=== PATIENT | female | born 1975 | race Two or more races ===

== ENCOUNTER 2016-08-12 21:16 | Inpatient (IN) | payer OTHER ==
[2016-08-12 21:31] VITALS: BMI 26.6
--- NOTE | 2016-08-12 21:57 | ED PDOC ---
Arrival/HPI - General Chief Complaint: Fever Time Seen by Provider: 08/12/16 21:34 Historian: Patient - History of Present Illness Narrative History of Present Illness (Text): 08/12/16 21:57 King No is a 41 year old female who presents to the ED accompanied by relative complaining of left flank pain. Patient states, via relative acting end worker, she has been experiencing left-sided flank pain with associated fever, dysuria, nausea, and vomiting. Patient denies any chest pain, shortness of breath, diarrhea, neck pain, headache, dizziness, or any other complaints. Time/Duration: Other (yesterday) Symptom Onset: Gradual Symptom Course: Unchanged Activities at Onset: Rest, Light Context: Home Past Medical History - Provider Review Nursing Documentation Reviewed: Yes - Infectious Disease Hx of Infectious Diseases: None - Psychiatric Hx Psychophysiologic Disorder: No Hx Anxiety: No Hx Bipolar Disorder: No Hx Depression: No Hx Emotional Abuse: No Hx Hallucinations: No Hx Panic Disorder: No Hx Post Traumatic Stress Disorder: No Hx Psychosis: No Hx Physical Abuse: No Hx Schizophrenia: No Hx Sexual Abuse: No Hx Substance Use: No - Surgical History Hx Section: Yes (x1) - Anesthesia Hx Anesthesia: No Hx Anesthesia Reactions: No Hx Malignant Hyperthermia: No - Suicidal Assessment Feels Threatened In Home Enviroment: No Family/Social History - Physician Review Nursing Documentation Reviewed: Yes Family/Social History: No Known Family HX Smoking Status: Never Smoked Hx Alcohol Use: No Hx Substance Use: No Allergies/Home Meds Allergies/Adverse Reactions: Allergies No Known Allergies Allergy (Verified 12/23/14 14:37) Home Medications: Home Meds Medication Instructions Recorded Confirmed No Known Home Med 08/12/16 08/12/16 Review of Systems - Physician Review All systems were reviewed & negative as marked: Yes - Review of Systems Constitutional: Fevers Eyes: Normal ENT: Normal Respiratory: Normal. absent: SOB, Cough Cardiovascular: Normal. absent: Chest Pain Gastrointestinal: Nausea, Vomiting. absent: Diarrhea Genitourinary Female: Dysuria. absent: Hematuria, Urine Output Changes Musculoskeletal: Back Pain (+left-sided flank pain) Skin: Normal. absent: Rash Neurological: Normal. absent: Headache, Dizziness Endocrine: Normal Hemo/Lymphatic: Normal Psychiatric: Normal Physical Exam Vital Signs Reviewed: Yes Vital Signs Temp Pulse Resp BP Pulse Ox 08/13/16 00:52 101.1 F H 107 H 18 120/62 99 08/13/16 00:17 112 H 17 119/57 L 99 08/12/16 21:30 102.7 F H 122 H 20 116/68 100 Temperature: Febrile Blood Pressure: Normal Pulse: Regular Respiratory Rate: Normal Appearance: Positive for: Well-Appearing, Non-Toxic, Comfortable Pain Distress: None Mental Status: Positive for: Alert and Oriented X 3 - Systems Exam Head: Present: Atraumatic, Normocephalic Pupils: Present: PERRL Extroacular Muscles: Present: EOMI Conjunctiva: Present: Normal Mouth: Present: Moist Mucous Membranes Neck: Present: Normal Range of Motion Respiratory/Chest: Present: Clear to Auscultation, Good Air Exchange. No: Respiratory Distress, Accessory Muscle Use Cardiovascular: Present: Regular Rate and Rhythm, Normal S1, S2. No: Murmurs Abdomen: Present: Normal Bowel Sounds. No: Tenderness, Distention, Peritoneal Signs Back: Present: CVA Tenderness (Left CVA tenderness) Upper Extremity: Present: Normal Inspection. No: Cyanosis, Edema Lower Extremity: Present: Normal Inspection. No: Edema Neurological: Present: GCS=15, CN II-XII Intact, Speech Normal Skin: Present: Warm, Dry, Normal Color. No: Rashes Psychiatric: Present: Alert, Oriented x 3, Normal Insight, Normal Concentration Medical Decision Making ED Course and Treatment: 08/12/16 21:57 Impression: 41 year old female complaining of fever, left flank pain, dysuria, nausea, and vomiting since yesterday. Differential Diagnosis include but are not limited to: pyelonephritis vs. renal colic vs. kidney stone Plan: -- CT Abdomen and Pelvis w/o contrast -- Labs, lipase -- UA, urine cultures -- Reassess and disposition Progress Notes: Reviewed radiology, CT Abdomen and Pelvis shows: 1. LEFT hydroureteronephrosis without CT evidence of obstructing calculus. DDX: obstructing radiolucent stone, recently passed ureteral calculus, ureteral stricture, infection, obstructing ureteral mass. Clinical correlation and follow up are recommended. 2. Adnexal lesion, indeterminate. Recommend ultrasound. 3. Incidental/non-acute findings are described above. 08/12/16 23:43 Case discussed with medical communication specialist transit operations supervisor, who is aware and agrees with plan. House physician notified. 08/12/16 23:[address] Petty, who is aware and agrees with plan. Accepts pt in hospitalist service. Pt will go to [facility] observation for pyelonephritis. Pt is no acute distress. Discussed results and hospital observation plan with pt , who is aware and verbalizes understanding. - Lab Interpretations Lab Results: 08/12/16 21:50 08/12/16 21:50 Lab Results 08/12/16 21:50: WBC 16.6 H D, RBC 3.75, Hgb 11.5 L, Hct 31.9 L, MCV 85.1, MCH 30.7, MCHC 36.1, RDW 12.1, Plt Count 223, MPV 11.3 H, Gran % 90.0 H, Lymph % ( Auto) 2.7 L, [place] % (Auto) 7.1 H, Eos % (Auto) 0.1 L, Baso % (Auto) 0.1, Gran # 14.93 H, Lymph # 0.5 L, [place] # 1.2 H, Eos # 0.0, Baso # 0.01, Sodium 136, Potassium 3.7, Chloride 100, Carbon Dioxide 25, Anion Gap 15, BUN 6 L, Creatinine 0.6, Est GFR ( Amer) > 60, Est GFR (Non-Af Amer) > 60, Random Glucose 117 H, Calcium 8.9, Total Bilirubin 0.9, AST 23, ALT 25, Alkaline Phosphatase 93, Total Protein 8.1, Albumin 4.1, Globulin 4.0, Albumin/Globulin Ratio 1.0 L, Lipase 61, Urine Color Yellow, Urine Appearance Cloudy, Urine pH 6.0, Ur Specific [place] 1.020, Urine Protein 100 H, Urine Glucose (UA) Negative , Urine Ketones Negative, Urine Blood Large H, Urine Nitrate Positive H, Urine Bilirubin Negative, Urine Urobilinogen 0.2, Ur Leukocyte Esterase Moderate H, Urine RBC 5 - 10, Urine WBC Tntc, Ur Epithelial Cells 0 - 2, Urine Bacteria Many , Urine HCG, Qual Negative I have reviewed the lab results: Yes - RAD Interpretation Narrative RAD Interpretations (Text): CT Abdomen and Pelvis shows: Limitations: Motion artifact - mild. Lower thorax: Minimal atelectasis. Probable small hiatal hernia. ABDOMEN: Liver: Unremarkable. Gallbladder and bile ducts: No calcified stones. No ductal dilation. Pancreas: Unremarkable. No ductal dilation. Spleen: No splenomegaly. Adrenals: No mass. Kidneys and ureters: No renal calculi. Mild pelvocaliectasis of LEFT kidney. Mildly dilated LEFT ureter. Stomach and bowel: No definite mural thickening. No obstruction. Appendix: Normal caliber. No inflammation. PELVIS: Bladder: Unremarkable. No stones. Reproductive: 4.4 x 3.8 x 5.2 cm hypodense lesion within RIGHT adnexal region. ABDOMEN and PELVIS: Intraperitoneal space: Trace free fluid within pelvis. No free air. Bones/joints: No acute fracture. Soft tissues: Unremarkable. Vasculature: Unremarkable. No abdominal aortic aneurysm. Lymph nodes: No pathologically enlarged lymph nodes. IMPRESSION: 1. LEFT hydroureteronephrosis without CT evidence of obstructing calculus. DDX: obstructing radiolucent stone, recently passed ureteral calculus, ureteral stricture, infection, obstructing ureteral mass. Clinical correlation and follow up are recommended. 2. Adnexal lesion, indeterminate. Recommend ultrasound. 3. Incidental/non-acute findings are described above. Radiology Orders: 08/12/16 22:38 ABD & PELVIS W/O PO OR IV CONT [CT] Stat Nail Mill Worker: Radiologist - Medication Orders Current Medication Orders: Acetaminophen (Tylenol 325mg Tab) 650 mg PO Q4H PRN PRN Reason: Fever >100.4 F Last Admin: 08/13/16 23:53 Dose: 650 MG MAR Pain/Vitals Document 08/13/16 23:53 KT (Rec: 08/13/16 23:53 KT [id number]) Pain Reassessment Is This A Pain ReAssessment? No Vitals Temperature (97.6 F-99.6 F) 101.4 F Temperature Source Oral Enoxaparin Sodium (Lovenox) 40 mg SC DAILY OLIVIA PRN Reason: Protocol Last Admin: 08/13/16 10:12 Dose: 40 MG Subcutaneous Administrations Document 08/13/16 10:12 REFUGIO (Rec: 08/13/16 10:12 REFUGIO [id number]) Injection Site MAR Injection Site Left Abdomen Charges for Administration # of Subcutaneous Administrations 1 Sodium Chloride (Sodium Chloride 0.9%) 1,000 mls @ 125 mls/hr IV .Q8H [facility] Last Admin: 08/13/16 17:45 Dose: 125 MLS/HR eMAR Start Stop Document 08/13/16 17:45 REFUGIO (Rec: 08/13/16 18:05 REFUGIO [id number]) Intravenous Solution Start Date 08/13/16 Start Time 17:45 End Date 08/14/16 End time 01:45 Total Infusion Time 480 Cefepime HCl (Maxipime 2gm) 100 mls @ 100 mls/hr IVPB Q8 OLIVIA PRN Reason: Protocol Stop: 08/18/16 23:16 Last Admin: 08/13/16 23:40 Dose: 100 MLS/HR eMAR Start Stop Document 08/13/16 23:40 KT (Rec: 08/13/16 23:40 KT [id number]) Intravenous Solution Start Date 08/13/16 Start Time 23:45 End Date 08/14/16 End time 00:15 Total Infusion Time 30 Ondansetron HCl (Zofran Inj) 4 mg IVP Q4H PRN PRN Reason: Nausea/Vomiting Pantoprazole Sodium (Protonix Inj) 40 mg IVP DAILY [facility] Last Admin: 08/13/16 10:12 Dose: 40 MG IVP Administration Document 08/13/16 10:12 REFUGIO (Rec: 08/13/16 10:12 REFUGIO [id number]) Charges for Administration # of IVP Administrations 1 Discontinued Medications Cefepime HCl (Maxipime 1gm) 100 mls @ 100 mls/hr IVPB Q12 OLIVIA PRN Reason: Protocol Last Admin: 08/12/16 23:58 Dose: 100 MLS/HR eMAR Start Stop Document 08/12/16 23:58 RD (Rec: 08/12/16 23:58 RD [id number]) Intravenous Solution Start Date 08/12/16 Start Time 23:58 End Date 08/13/16 End time 00:58 Total Infusion Time 60 Ceftriaxone Sodium (Rocephin 1 Gram Ivpb) 100 mls @ 100 mls/hr IVPB DAILY OLIVIA PRN Reason: Protocol Last Admin: 08/13/16 10:11 Dose: 100 MLS/HR eMAR Start Stop Document 08/13/16 10:11 REFUGIO (Rec: 08/13/16 10:11 REFUGIO [id number]) Intravenous Solution Start Date 08/13/16 Start Time 10:11 End Date 08/13/16 End time 11:11 Total Infusion Time 60 Ketorolac Tromethamine (Toradol) 30 mg IVP ONCE ONE Stop: 08/12/16 23:55 Last Admin: 08/13/16 00:09 Dose: 30 MG IVP Administration Document 08/13/16 00:09 RD (Rec: 08/13/16 00:09 RD [id number]) Charges for Administration # of IVP Administrations 1 - Scribe Statement The provider has reviewed the documentation as recorded by the Oralia Nguyen Provider Attestation: All medical record entries made by the Oralia were at my direction and personally dictated by me. I have reviewed the chart and agree that the record accurately reflects my personal performance of the history, physical exam, medical decision making, and the department course for this patient. I have also personally directed, reviewed, and agree with the discharge instructions and disposition. Disposition/Present on Arrival - Present on Arrival Any Indicators Present on Arrival: No History of DVT/PE: No History of Uncontrolled Diabetes: No Urinary Catheter: No History of Decub. Ulcer: No History Surgical Site Infection Following: None - Disposition Have Diagnosis and Disposition been Completed?: Yes Diagnosis: Pyelonephritis Disposition: HOSPITALIZED Disposition Time: 23:15 Condition: GOOD
[2016-08-12 22:21] LABS: ADD MANUAL DIFF? NO
[2016-08-12 22:28] LABS: BASO # 0.01 K/mm3 (0.0-2.0); BASO % 0.1 % (0.0-3.0); EOS % 0.1 % (1.5-5.0); GRAN # 14.93 (1.4-6.5); HEMATOCRIT 31.9 % (36.0-48.0); LYMPH # 0.5 (1.2-3.4); LYMPH % 2.7 % (22.0-35.0); MEAN CELL VOLUME 85.1 fL (80.0-105.0); MEAN CORPUSCULAR HEMOGLOBIN 30.7 pg (25.0-35.0); MEAN CORPUSCULAR HGB CONC 36.1 g/dl (31.0-37.0); MEAN PLATELET VOLUME 11.3 fl (7.0-11.0); MONO # 1.2 (0.1-0.6); MONO % 7.1 % (1.0-6.0); PLATELET COUNT 223 10^3/uL (120.0-450.0); RED CELL DISTRIBUTION WIDTH 12.1 % (11.5-14.5); URINE BILIRUBIN NEGATIVE (NEGATIVE); URINE BLOOD LARGE (NEGATIVE); URINE GLUCOSE (UA) NEGATIVE (NEGATIVE); URINE KETONE NEGATIVE (NEGATIVE); URINE LEUKOCYTE ESTERASE MODERATE Leu/uL (NEGATIVE); URINE PROTEIN 100 mg/dL (<30 mg/dL); URINE UROBILINOGEN 0.2 E.U./dL (<1 E.U./dL); WHITE BLOOD COUNT 16.6 10^3/ul (4.5-11.0)
[2016-08-12 22:31] LABS: URINE APPEARANCE CLOUDY (CLEAR); URINE COLOR YELLOW (YELLOW)
[2016-08-12 22:35] LABS: URINE WBC TNTC /hpf (0-6)
[2016-08-12 22:36] LABS: URINE BACTERIA MANY (NEG); URINE EPITHELIAL CELLS 0 - 2 /hpf (0-5)
[2016-08-12 22:38] LABS: ALKALINE PHOSPHATASE 93 U/L (38-133); ALT/SGPT 25 U/L (7-56); AST/SGOT 23 U/L (15-39); BILIRUBIN,TOTAL 0.9 mg/dL (0.2-1.3); BLOOD UREA NITROGEN 6 mg/dL (7-21); CALCIUM 8.9 mg/dL (8.4-10.5); CARBON DIOXIDE 25 mmol/L (21-33); CHLORIDE 100 mmol/L (95-110); GFR AFRICAN-AMERICAN > 60; GLUCOSE,RANDOM 117 mg/dL (70-110); LIPASE 61 U/L (23-300); POTASSIUM 3.7 mmol/L (3.6-5.0); SODIUM 136 mmol/L (132-148); TOTAL PROTEIN 8.1 g/dL (5.8-8.3)
--- NOTE | 2016-08-12 23:36 | CT ---
EXAM: CT Abdomen and Pelvis Without Intravenous Contrast CLINICAL HISTORY: 41 years old, female; Pain; Abdominal pain; Flank; Left; Additional info: Left flank pain TECHNIQUE: Axial computed tomography images of the abdomen and pelvis without intravenous contrast. This CT exam was performed using one or more of the following dose reduction techniques: automated exposure control, adjustment of the mA and/or kV according to patient size, and/or use of iterative reconstruction technique. Coronal and sagittal reformatted images were created and reviewed. COMPARISON: No relevant prior studies available. FINDINGS: Limitations: Motion artifact - mild. Lower thorax: Minimal atelectasis. Probable small hiatal hernia. ABDOMEN: Liver: Unremarkable. Gallbladder and bile ducts: No calcified stones. No ductal dilation. Pancreas: Unremarkable. No ductal dilation. Spleen: No splenomegaly. Adrenals: No mass. Kidneys and ureters: No renal calculi. Mild pelvocaliectasis of LEFT kidney. Mildly dilated LEFT ureter. Stomach and bowel: No definite mural thickening. No obstruction. Appendix: Normal caliber. No inflammation. PELVIS: Bladder: Unremarkable. No stones. Reproductive: 4.4 x 3.8 x 5.2 cm hypodense lesion within RIGHT adnexal region. ABDOMEN and PELVIS: Intraperitoneal space: Trace free fluid within pelvis. No free air. Bones/joints: No acute fracture. Soft tissues: Unremarkable. Vasculature: Unremarkable. No abdominal aortic aneurysm. Lymph nodes: No pathologically enlarged lymph nodes. IMPRESSION: 1. LEFT hydroureteronephrosis without CT evidence of obstructing calculus. DDX: obstructing radiolucent stone, recently passed ureteral calculus, ureteral stricture, infection, obstructing ureteral mass. Clinical correlation and follow up are recommended. 2. Adnexal lesion, indeterminate. Recommend ultrasound. 3. Incidental/non-acute findings are described above.
[2016-08-12] MEDS ORDERED: Cefepime 1gm in NS 100ml 100 ML IVPB SCH (23:45)
[2016-08-13] MEDS: Sodium Chloride 0.9% 1,000 ML IV SCH ×3 (00:22→17:45)
--- NOTE | 2016-08-13 00:24 | CP.PCM.HP ---
<Leandro Gutierrez - Last Filed: 08/13/16 00:56> History of Present Illness - History of Present Illness History of Present Illness: cc: Left-sided flank pin HPI: Patient is a 41yo female with no significant past medical history that presented c/o left-sided flank pain. Patient reported that the pain started yesterday afternoon and was associated with fever, chills, nausea and several episodes of nonbilious, nonbloody vomiting. Patient states that the pain is 5/ 10 in severity, radiates into her back and that she has never experienced anything like this before in the past. She also reported pain with urination however denied frequency and urgency. In the ED, patient's vitals were as follows: temperature 102.7F, heart rate 122 bpm, blood pressure 116/68, RR 20, o2sat 100% on room air. Labs were notable for WBC count of 16.6. Urinalysis showed large blood with 5-10 RBC's, positive for moderate leukocyte esterase, nitrates and many bacteria. CT abd/pelvis without contrast revealed left hydroureteronephrosis without evidence of obstructing calculus. Patient denied chest pain, palpitations, SOB, abdominal pain, diarrhea, constipation, cough, focal weakness, numbness, tingling, sick contacts, recent travel. 12 point ROS as per HPI above, otherwise negative PMHx: none PSHx: 1x 3 yrs prior Family Hx: noncontributory Medications: none Allergies: NKDA a Social hx: denies tobacco, alcohol and illicit drug use Present on Admission - Present on Admission Any Indicators Present on Admission: No Past Patient History - Infectious Disease Hx of Infectious Diseases: None - Past Social History Smoking Status: Never Smoked - PSYCHIATRIC Hx Psychophysiologic Disorder: No Hx Anxiety: No Hx Bipolar Disorder: No Hx Depression: No Hx Emotional Abuse: No Hx Hallucinations: No Hx Panic Symptoms: No Hx Post Traumatic Stress Disorder: No Hx Psychosis: No Hx Physical Abuse: No Hx Schizophrenia: No Hx Sexual Abuse: No Hx Substance Use: No - SURGICAL HISTORY Hx Section: Yes (x1) - ANESTHESIA Hx Anesthesia: No Hx Anesthesia Reactions: No Hx Malignant Hyperthermia: No Meds Allergies/Adverse Reactions: Allergies Allergy/AdvReac Type Severity Reaction Status Date / Time No Known Allergies Allergy Verified 12/23/14 14:37 Physical Exam - Constitutional Appears: Non-toxic, No Acute Distress - Head Exam Head Exam: ATRAUMATIC, NORMAL INSPECTION, NORMOCEPHALIC - Eye Exam Eye Exam: EOMI, PERRL. absent: Conjunctival injection, Scleral icterus - ENT Exam ENT Exam: Mucous Membranes Moist - Neck Exam Neck exam: Positive for: Normal Inspection. Negative for: Lymphadenopathy, Tenderness, Thyromegaly - Respiratory Exam Respiratory Exam: Clear to Auscultation Bilateral, NORMAL BREATHING PATTERN. absent: Accessory Muscle Use, Rales, Rhonchi, Wheezes - Cardiovascular Exam Cardiovascular Exam: Tachycardia, +S1, +S2. absent: Diastolic murmur, Gallop, JVD, Rubs, Systolic Murmur - GI/Abdominal Exam GI & Abdominal Exam: Normal Bowel Sounds, Soft. absent: Distended, Firm, Guarding, Tenderness - Extremities Exam Extremities exam: Positive for: normal inspection, pedal pulses present. Negative for: calf tenderness, pedal edema, tenderness - Back Exam Back exam: CVA tenderness (L), NORMAL INSPECTION. absent: paraspinal tenderness , rash noted - Neurological Exam Neurological exam: Alert, CN II-XII Intact, Oriented x3 - Psychiatric Exam Psychiatric exam: Normal Affect, Normal Mood - Skin Skin Exam: Dry, Intact, Normal Color, Warm Results - Vital Signs Recent Vital Signs: Last Vital Signs Temp 102.7 F H 08/12/16 21:30 Pulse 112 H 08/13/16 00:17 Resp 17 08/13/16 00:17 BP 119/57 L 08/13/16 00:17 Pulse Ox 99 08/13/16 00:17 - Labs Result Diagrams: 08/12/16 21:50 08/12/16 21:50 Labs: Laboratory Results - last 24 hr 08/12/16 21:50 WBC 16.6 H D RBC 3.75 Hgb 11.5 L Hct 31.9 L MCV 85.1 MCH 30.7 MCHC 36.1 RDW 12.1 Plt Count 223 MPV 11.3 H Gran % 90.0 H Lymph % (Auto) 2.7 L [place] % (Auto) 7.1 H Eos % (Auto) 0.1 L Baso % (Auto) 0.1 Gran # 14.93 H Lymph # 0.5 L [place] # 1.2 H Eos # 0.0 Baso # 0.01 Sodium 136 Potassium 3.7 Chloride 100 Carbon Dioxide 25 Anion Gap 15 BUN 6 L Creatinine 0.6 Est GFR ( Amer) > 60 Est GFR (Non-Af Amer) > 60 Random Glucose 117 H Calcium 8.9 Total Bilirubin 0.9 AST 23 ALT 25 Alkaline Phosphatase 93 Total Protein 8.1 Albumin 4.1 Globulin 4.0 Albumin/Globulin Ratio 1.0 L Lipase 61 Urine Color Yellow Urine Appearance Cloudy Urine pH 6.0 Ur Specific [place] 1.020 Urine Protein 100 H Urine Glucose (UA) Negative Urine Ketones Negative Urine Blood Large H Urine Nitrate Positive H Urine Bilirubin Negative Urine Urobilinogen 0.2 Ur Leukocyte Esterase Moderate H Urine RBC 5 - 10 Urine WBC Tntc Ur Epithelial Cells 0 - 2 Urine Bacteria Many Urine HCG, Qual Negative Assessment & Plan - Assessment and Plan (Free Text) Assessment: 41yo female with no significant past medical history presents c/o left-sided flank pain associated with fever, chills, nausea and vomiting for past 1 day Plan: 1. Acute pyelonephritis -CT abd/pelvis reviewed; revealed left-sided hydroureteronephrosis with no visible obstructing calculus -febrile, leukocytosis with left shift -procalcitonin and lactic acid pending -Blood and urine cultures pending -IVF hydration -Continue with rocephin 1g qD -Tylenol 650mg PO q4h PRN for fevers -Zofran 4mg q4h PRN for nausea/vomiting -Protonix for GI prophylaxis -Lovenox for DVT prophylaxis Patient seen and case discussed with attending, Dr. Petty - Date & Time Date: 08/13/16 Time: 00:36 <Malinda SORIA,Ty - Last Filed: 08/13/16 08:08> Results - Vital Signs Recent Vital Signs: Last Vital Signs Temp 97.5 F L 08/13/16 07:22 Pulse 87 08/13/16 07:22 Resp 20 08/13/16 07:22 BP 91/58 L 08/13/16 07:22 Pulse Ox 98 08/13/16 07:22 - Labs Result Diagrams: 08/12/16 21:50 08/12/16 21:50 Labs: Laboratory Results - last 24 hr 08/13/16 00:54 Lactic Acid 0.8 Attending/Attestation - Attestation I have personally seen and examined this patient.: Yes I have fully participated in the care of the patient.: Yes I have reviewed all pertinent clinical information: Yes Notes (Text): 08/13/16 08:07 -I agree with the above H&P completed by the resident physician. -Briefly, the patient is a 41 year old woman with no past medical history, admitted with left-sided pyelonephritis for which she will be treated with IV Ceftriaxone.
[2016-08-13 02:42] VITALS: RESP 20
[2016-08-13 09:06] LABS: ADD MANUAL DIFF? NO
[2016-08-13 09:10] LABS: BASO # 0.01 K/mm3 (0.0-2.0); BASO % 0.1 % (0.0-3.0); EOS % 0.1 % (1.5-5.0); GRAN # 11.41 (1.4-6.5); GRAN % 83.4 % (50.0-68.0); HEMATOCRIT 28.7 % (36.0-48.0); LYMPH # 1.1 (1.2-3.4); LYMPH % 7.7 % (22.0-35.0); MEAN CELL VOLUME 85.9 fL (80.0-105.0); MEAN CORPUSCULAR HEMOGLOBIN 30.2 pg (25.0-35.0); MEAN CORPUSCULAR HGB CONC 35.2 g/dl (31.0-37.0); MEAN PLATELET VOLUME 11.6 fl (7.0-11.0); MONO # 1.2 (0.1-0.6); MONO % 8.7 % (1.0-6.0); PLATELET COUNT 205 10^3/uL (120.0-450.0); RED CELL DISTRIBUTION WIDTH 12.3 % (11.5-14.5); WHITE BLOOD COUNT 13.7 10^3/ul (4.5-11.0)
[2016-08-13 09:20] LABS: ALKALINE PHOSPHATASE 87 U/L (38-133); ALT/SGPT 16 U/L (7-56); AST/SGOT 21 U/L (15-39); BILIRUBIN,TOTAL 0.7 mg/dL (0.2-1.3); BLOOD UREA NITROGEN 8 mg/dL (7-21); CALCIUM 8.3 mg/dL (8.4-10.5); CARBON DIOXIDE 25 mmol/L (21-33); CHLORIDE 104 mmol/L (98-107); GFR AFRICAN-AMERICAN > 60; GLUCOSE,RANDOM 96 mg/dL (70-110); POTASSIUM 3.9 mmol/L (3.6-5.0); SODIUM 138 mmol/L (132-148); TOTAL PROTEIN 7.1 g/dL (5.8-8.3)
[2016-08-13] MEDS ORDERED: cefTRIAXone 1 gm 100 ML IVPB SCH (10:00)
[2016-08-13] MEDS: Enoxaparin 40 mg Syringe SC SCH (10:12)
[2016-08-13] MEDS: Cefepime IV 2 gm in NS 100 ML IVPB SCH (23:40)
[2016-08-14] MEDS ORDERED: Sodium Chloride 0.9% 1,000 ML IV SCH (01:16)
[2016-08-14] MEDS: Cefepime IV 2 gm in NS 100 ML IVPB SCH ×3 (05:45→22:32)
[2016-08-14 09:32] LABS: ADD MANUAL DIFF? NO
[2016-08-14 09:33] LABS: BASO # 0.01 K/mm3 (0.0-2.0); BASO % 0.1 % (0.0-3.0); EOS % 0.3 % (1.5-5.0); GRAN % 83.7 % (50.0-68.0); HEMATOCRIT 26.2 % (36.0-48.0); LYMPH # 0.6 (1.2-3.4); LYMPH % 7.8 % (22.0-35.0); MEAN CELL VOLUME 85.6 fL (80.0-105.0); MEAN CORPUSCULAR HEMOGLOBIN 30.4 pg (25.0-35.0); MEAN CORPUSCULAR HGB CONC 35.5 g/dl (31.0-37.0); MEAN PLATELET VOLUME 10.3 fl (7.0-11.0); MONO # 0.6 (0.1-0.6); MONO % 8.1 % (1.0-6.0); PLATELET COUNT 187 10^3/uL (120.0-450.0); RED CELL DISTRIBUTION WIDTH 12.2 % (11.5-14.5); WHITE BLOOD COUNT 7.4 10^3/ul (4.5-11.0)
[2016-08-14 09:49] LABS: ALB/GLOB RATIO 0.9 (1.1-1.8); ALKALINE PHOSPHATASE 80 U/L (38-133); ALT/SGPT 30 U/L (7-56); AST/SGOT 18 U/L (15-39); BILIRUBIN,TOTAL 0.7 mg/dL (0.2-1.3); BLOOD UREA NITROGEN 4 mg/dL (7-21); CARBON DIOXIDE 22 mmol/L (21-33); CHLORIDE 108 mmol/L (98-107); GFR AFRICAN-AMERICAN > 60; GLUCOSE,RANDOM 136 mg/dL (70-110); POTASSIUM 3.5 mmol/L (3.6-5.0); SODIUM 137 mmol/L (132-148); TOTAL PROTEIN 6.6 g/dL (5.8-8.3)
[2016-08-14] MEDS: Enoxaparin 40 mg Syringe SC SCH (10:54)
--- NOTE | 2016-08-14 13:20 | CP.PCM.PN ---
<JairoIzabella - Last Filed: 08/14/16 13:15> Subjective - Date & Time of Evaluation Date of Evaluation: 08/14/16 Time of Evaluation: 13:15 - Subjective Subjective: Progress note for Hospitalist Pt s&e w attending. Pt had fever of 101.4 overnight. C/O of L flank pain but improved. Tolerating diet and no other complaints. Denies N/V/D/dysuria. +amb Objective - Vital Signs/Intake and Output Vital Signs (last 24 hours): Temp Pulse Resp BP Pulse Ox 98.7 F 77 20 119/75 97 08/14/16 07:30 08/14/16 07:30 08/14/16 07:30 08/14/16 07:30 08/14/16 07:30 Intake and Output: 08/14/16 08/14/16 06:59 18:59 Intake Total 260 Balance 260 - Medications Medications: Current Medications Acetaminophen (Tylenol 325mg Tab) 650 mg PO Q4H PRN PRN Reason: Fever >100.4 F Last Admin: 08/13/16 23:53 Dose: 650 mg Enoxaparin Sodium (Lovenox) 40 mg SC DAILY OLIVIA PRN Reason: Protocol Last Admin: 08/14/16 10:54 Dose: 40 mg Cefepime HCl (Maxipime 2gm) 100 mls @ 100 mls/hr IVPB Q8 OLIVIA PRN Reason: Protocol Stop: 08/18/16 23:16 Last Admin: 08/14/16 05:45 Dose: 100 mls/hr Sodium Chloride (Sodium Chloride 0.9%) 1,000 mls @ 135 mls/hr IV .Q7H25M [facility] [place] Last Admin: 08/14/16 10:53 Dose: 135 mls/hr Ondansetron HCl (Zofran Inj) 4 mg IVP Q4H PRN PRN Reason: Nausea/Vomiting Pantoprazole Sodium (Protonix Inj) 40 mg IVP DAILY [facility] [place] Last Admin: 08/14/16 10:55 Dose: 40 mg - Labs Labs: 08/14/16 09:00 08/14/16 09:00 - Constitutional Appears: Well - Head Exam Head Exam: NORMAL INSPECTION - Eye Exam Eye Exam: EOMI, Normal appearance, PERRL Pupil Exam: NORMAL ACCOMODATION, PERRL - ENT Exam ENT Exam: Mucous Membranes Moist, Normal Exam - Neck Exam Neck Exam: Full ROM, Normal Inspection. absent: Lymphadenopathy - Respiratory Exam Respiratory Exam: Clear to Ausculation Bilateral, NORMAL BREATHING PATTERN. absent: Decreased Breath Sounds - Cardiovascular Exam Cardiovascular Exam: REGULAR RHYTHM, +S1, +S2. absent: Murmur - GI/Abdominal Exam GI & Abdominal Exam: Soft, Normal Bowel Sounds. absent: Distended, Firm, Tenderness - Exam Exam: NORMAL INSPECTION - Extremities Exam Extremities Exam: Full ROM, Normal Capillary Refill, Normal Inspection. absent : Joint Swelling, Pedal Edema - Back Exam Back Exam: Full ROM, NORMAL INSPECTION, tenderness. absent: CVA tenderness (L) , CVA tenderness (R), muscle spasm - Neurological Exam Neurological Exam: Alert, Awake, CN II-XII Intact, Normal Gait, Oriented x3 - Psychiatric Exam Psychiatric exam: Normal Affect, Normal Mood - Skin Skin Exam: Dry, Intact, Normal Color, Warm Assessment and Plan - Assessment and Plan (Free Text) Assessment: 41yo female with no significant past medical history presents c/o left-sided flank pain associated with fever, chills, nausea and vomiting Plan: 1. Acute pyelonephritis -CT abd/pelvis reviewed; revealed left-sided hydroureteronephrosis with no visible obstructing calculus -febrile, leukocytosis resolved 7.4 today -Blood cx and urine cx : Gram neg ye -UA : Nitrate, LE + -IVF hydration -Cefepime -Tylenol 650mg PO q4h PRN for fevers -Zofran 4mg q4h PRN for nausea/vomiting -Protonix for GI prophylaxis -Lovenox for DVT prophylaxis -F/U Uro c/s Dispo: Possible DC tomorrow or Th DW attending <Kassandra Middleton MD - Last Filed: 08/14/16 17:45> Objective - Vital Signs/Intake and Output Vital Signs (last 24 hours): Temp Pulse Resp BP Pulse Ox 98.7 F 77 20 119/75 97 08/14/16 07:30 08/14/16 07:30 08/14/16 07:30 08/14/16 07:30 08/14/16 07:30 Intake and Output: 08/14/16 08/14/16 06:59 18:59 Intake Total 260 Balance 260 - Medications Medications: Current Medications Acetaminophen (Tylenol 325mg Tab) 650 mg PO Q4H PRN PRN Reason: Fever >100.4 F Last Admin: 08/13/16 23:53 Dose: 650 mg Enoxaparin Sodium (Lovenox) 40 mg SC DAILY OLIVIA PRN Reason: Protocol Last Admin: 08/14/16 10:54 Dose: 40 mg Cefepime HCl (Maxipime 2gm) 100 mls @ 100 mls/hr IVPB Q8 OLIVIA PRN Reason: Protocol Stop: 08/18/16 23:16 Last Admin: 08/14/16 14:15 Dose: 100 mls/hr Sodium Chloride (Sodium Chloride 0.9%) 1,000 mls @ 135 mls/hr IV .Q7H25M [facility] [place] Last Admin: 08/14/16 10:53 Dose: 135 mls/hr Ondansetron HCl (Zofran Inj) 4 mg IVP Q4H PRN PRN Reason: Nausea/Vomiting Pantoprazole Sodium (Protonix Inj) 40 mg IVP DAILY [facility] [place] Last Admin: 08/14/16 10:55 Dose: 40 mg - Labs Labs: 08/14/16 09:00 08/14/16 09:00 Attending/Attestation - Attestation I have personally seen and examined this patient.: Yes I have fully participated in the care of the patient.: Yes I have reviewed all pertinent clinical information, including history, physical exam and plan: Yes Notes (Text): Patient was seen and examined with medical safety director .Agreed with resident assessment and plan. 41 Yrs old female with sepsis due to gram negative bacteremia due to UTI, also has left sided hydronephrosis, feeling better, will continue IV antibiotics and will follow up cultures. Urology evaluation is pending. ID evaluation is appreciated. Management plan was discussed in detail with patient Education was provided.
--- NOTE | 2016-08-14 17:07 | CP.PCM.CON ---
History of Present Illness - History of Present Illness History of Present Illness: 41 year old female with no significant past medical history came in complaining of a 1 day history of left flank pain associated with nausea as well as fever and chills. She also had dysuria but no hematuria, no urianry frequency or hesitancy. She denies abdominal pain, no headache or dizziness, no chest pain, no SOB, no sore throat, no cough or rhinorrhea, no dysphagia, no odynophagia. In the ED, CT scan of the abdomen and pelvis sowed left sided hydroureteronephrosis without calculus. Also bacteria was found in the urine and blood. Infectious Diseases consult is requested to further evaluate and manage. Review of Systems - Review of Systems All systems: reviewed and no additional remarkable complaints except (as per HPI ) Past Patient History - Infectious Disease Hx of Infectious Diseases: None - Past Medical History & Family History Past Medical History?: No Past Family History: Reviewed and not pertinent - Past Social History Smoking Status: Never Smoked Alcohol: None Drugs: Denies Home Situation {Lives}: With Family - MUSCULOSKELETAL/RHEUMATOLOGICAL Hx Falls: No - PSYCHIATRIC Hx Psychophysiologic Disorder: No Hx Anxiety: No Hx Bipolar Disorder: No Hx Depression: No Hx Emotional Abuse: No Hx Hallucinations: No Hx Panic Symptoms: No Hx Post Traumatic Stress Disorder: No Hx Psychosis: No Hx Physical Abuse: No Hx Schizophrenia: No Hx Sexual Abuse: No Hx Substance Use: No - SURGICAL HISTORY Hx Surgeries: Yes () - ANESTHESIA Hx Anesthesia: No Hx Anesthesia Reactions: No Hx Malignant Hyperthermia: No Meds Allergies/Adverse Reactions: Allergies Allergy/AdvReac Type Severity Reaction Status Date / Time No Known Allergies Allergy Verified 12/23/14 14:37 - Medications Medications: Current Medications Acetaminophen (Tylenol 325mg Tab) 650 mg PO Q4H PRN PRN Reason: Fever >100.4 F Last Admin: 08/13/16 10:12 Dose: 650 mg Enoxaparin Sodium (Lovenox) 40 mg SC DAILY OLIVIA PRN Reason: Protocol Last Admin: 08/13/16 10:12 Dose: 40 mg Sodium Chloride (Sodium Chloride 0.9%) 1,000 mls @ 125 mls/hr IV .Q8H [facility] Last Admin: 08/13/16 17:45 Dose: 125 mls/hr Cefepime HCl (Maxipime 2gm) 100 mls @ 100 mls/hr IVPB Q8 OLIVIA PRN Reason: Protocol Stop: 08/18/16 23:16 Ondansetron HCl (Zofran Inj) 4 mg IVP Q4H PRN PRN Reason: Nausea/Vomiting Pantoprazole Sodium (Protonix Inj) 40 mg IVP DAILY [facility] Last Admin: 08/13/16 10:12 Dose: 40 mg Physical Exam - Constitutional Appears: Non-toxic, No Acute Distress - Head Exam Head Exam: NORMAL INSPECTION - ENT Exam ENT Exam: Mucous Membranes Moist - Neck Exam Neck exam: Negative for: Lymphadenopathy, Meningismus - Respiratory Exam Respiratory Exam: Decreased Breath Sounds - Cardiovascular Exam Cardiovascular Exam: +S1, +S2 - GI/Abdominal Exam GI & Abdominal Exam: Soft. absent: Tenderness - Back Exam Back exam: absent: CVA tenderness (L), CVA tenderness (R) Results - Vital Signs Recent Vital Signs: Last Vital Signs Temp 98 F 08/13/16 15:39 Pulse 91 H 08/13/16 15:39 Resp 20 08/13/16 15:39 BP 84/50 L 08/13/16 15:39 Pulse Ox 100 08/13/16 15:39 - Labs Result Diagrams: 08/14/16 09:00 08/14/16 09:00 Labs: Laboratory Results - last 24 hr 08/13/16 08/13/16 08/13/16 00:54 07:30 09:00 WBC 13.7 H RBC 3.34 L Hgb 10.1 L Hct 28.7 L MCV 85.9 MCH 30.2 MCHC 35.2 RDW 12.3 Plt Count 205 MPV 11.6 H Gran % 83.4 H Lymph % (Auto) 7.7 L [place] % (Auto) 8.7 H Eos % (Auto) 0.1 L Baso % (Auto) 0.1 Gran # 11.41 H Lymph # 1.1 L [place] # 1.2 H Eos # 0.0 Baso # 0.01 Sodium 138 Potassium 3.9 Chloride 104 Carbon Dioxide 25 Anion Gap 13 BUN 8 Creatinine 0.7 Est GFR ( Amer) > 60 Est GFR (Non-Af Amer) > 60 Random Glucose 96 Lactic Acid 0.8 Calcium 8.3 L Total Bilirubin 0.7 AST 21 ALT 16 Alkaline Phosphatase 87 Total Protein 7.1 Albumin 3.5 Globulin 3.6 Albumin/Globulin Ratio 1.0 L Procalcitonin 0.77 H Assessment & Plan - Assessment and Plan (Free Text) Plan: Assessment Sepsis secondary to gram negative bacilli probably secondary to left sided pyelopnephritis with associated hydroureteronephrosis Plan Started patient on Cefepime pending identification and senstivities of the gram negative bacilli in the blood and urine Will monitor clinical response
--- NOTE | 2016-08-14 20:24 | CON ---
DATE: 08/14/2016 CHIEF COMPLAINT: Pyelonephritis. HISTORY OF PRESENT ILLNESS: This is a 41-year-old female who had the onset of fever, chills, left fl ank pain. She has no prior urologic history. She was admitted through the Emergency Room. A CAT sc an was done, which was compatible with pyelo. Her urine culture is positive for gram-negative organi sm. She is feeling better. Currently has no flank tenderness. No nausea or vomiting. Her temperat ure upon admission was 102.7. The CAT scan that was done showed some mild left hydro without any calculus. I think this is due to i nfection causing this. No prior history of stones. SOCIAL HISTORY: She is not a smoker. FAMILY HISTORY: Noncontributory. ALLERGIES: She has no allergies. PAST SURGICAL HISTORY: She has had 1 3 years ago. MEDICATIONS: She takes no medicines. REVIEW OF SYSTEMS: Currently no symptoms referable to the head, eyes, ears, nose or throat. No card iac, respiratory symptoms. No GI symptoms. She has no dysuria, urgency or frequency. PHYSICAL EXAMINATION: VITAL SIGNS: Shows her to be afebrile, pulse 77, blood pressure 119/75, respirations 20. GENERAL: Well oriented x 3. I spoke with her using the Google translation benson, and this along with the limited [place] that she speaks allowed us to communicate with each other. ABDOMEN: She has no CVA pain, no rebound or guarding. The abdomen is soft. LABORATORY DATA: Shows a white count originally 16,600, now 7400. Her creatinine is normal at 0.6. Her serology was negative for flu. Initial urine showed positive nitrates, too numerous to count WB Cs. Her urine culture is growing a gram-negative ye. Her blood culture also showed gram-negative r ods. Identity not established yet. She currently is on cefepime by ID. I do not feel she needs urologic intervention at this time. I think this is due to pyelo. She is re sponding to antibiotic treatment and the length of time will be determined by ID's recommendation. Jurgen millan the fact that her blood cultures are positive, she probably will be on antibiotics for 10-14 day s IV and p.o. Juancarlos Chacon MD cc: [phone] TT: 08/14/2016 20:23:33 Confirmation # [id number] Dictation # [id number]
[2016-08-15] MEDS: Cefepime IV 2 gm in NS 100 ML IVPB SCH (06:30)
[2016-08-15 08:02] VITALS: BP 110/73; PULSE 98; TEMP 98; O2SAT 96
[2016-08-15 08:19] LABS: ADD MANUAL DIFF? NO
[2016-08-15 08:26] LABS: BASO # 0.01 K/mm3 (0.0-2.0); BASO % 0.2 % (0.0-3.0); EOS # 0.1 (0.0-0.7); EOS % 1.9 % (1.5-5.0); GRAN % 64.8 % (50.0-68.0); HEMATOCRIT 24.6 % (36.0-48.0); LYMPH # 0.9 (1.2-3.4); LYMPH % 21.3 % (22.0-35.0); MEAN CELL VOLUME 85.4 fL (80.0-105.0); MEAN CORPUSCULAR HEMOGLOBIN 29.9 pg (25.0-35.0); MEAN PLATELET VOLUME 10.4 fl (7.0-11.0); MONO # 0.5 (0.1-0.6); MONO % 11.8 % (1.0-6.0); PLATELET COUNT 179 10^3/uL (120.0-450.0); RED CELL DISTRIBUTION WIDTH 12.1 % (11.5-14.5); WHITE BLOOD COUNT 4.3 10^3/ul (4.5-11.0)
[2016-08-15 08:33] LABS: ALB/GLOB RATIO 0.9 (1.1-1.8); ALKALINE PHOSPHATASE 68 U/L (38-133); ALT/SGPT 27 U/L (7-56); AST/SGOT 15 U/L (15-39); BILIRUBIN,TOTAL 0.4 mg/dL (0.2-1.3); BLOOD UREA NITROGEN 3 mg/dL (7-21); CARBON DIOXIDE 25 mmol/L (21-33); CHLORIDE 108 mmol/L (95-110); GFR AFRICAN-AMERICAN > 60; GLUCOSE,RANDOM 101 mg/dL (70-110); POTASSIUM 3.9 mmol/L (3.6-5.0); SODIUM 140 mmol/L (132-148); TOTAL PROTEIN 6.5 g/dL (5.8-8.3)
[2016-08-15] MEDS: Enoxaparin 40 mg Syringe SC SCH (10:42)
--- NOTE | 2016-08-15 11:41 | CP.PCM.DIS ---
<Izabella Gill - Last Filed: 08/15/16 11:38> Provider - Provider Date of Admission: 08/14/16 08:57 Attending physician: Baylee Danielle MD Primary care physician: Toño Jacobo MD Consults: f/u with Urology in 2 weeks: Dr. Chacon Time Spent in preparation of Discharge (in minutes): 45 Hospital Course - Lab Results Lab Results: Micro Results 08/14/16 09:10 Blood-Venous Blood Culture - Preliminary NO GROWTH AFTER 24 HOURS 08/14/16 09:00 Blood-Venous Blood Culture - Preliminary NO GROWTH AFTER 24 HOURS Most Recent Lab Values WBC 4.3 10^3/ul (4.5-11.0) L D 08/15/16 08:00 RBC 2.88 10^6/uL (3.5-6.1) L 08/15/16 08:00 Hgb 8.6 gm/dL (12.0-16.0) L 08/15/16 08:00 Hct 24.6 % (36.0-48.0) L 08/15/16 08:00 MCV 85.4 fL (80.0-105.0) 08/15/16 08:00 MCH 29.9 pg (25.0-35.0) 08/15/16 08:00 MCHC 35.0 g/dl (31.0-37.0) 08/15/16 08:00 RDW 12.1 % (11.5-14.5) 08/15/16 08:00 Plt Count 179 10^3/uL (120.0-450.0) 08/15/16 08:00 MPV 10.4 fl (7.0-11.0) 08/15/16 08:00 Gran % 64.8 % (50.0-68.0) 08/15/16 08:00 Lymph % (Auto) 21.3 % (22.0-35.0) L 08/15/16 08:00 [place] % (Auto) 11.8 % (1.0-6.0) H 08/15/16 08:00 Eos % (Auto) 1.9 % (1.5-5.0) 08/15/16 08:00 Baso % (Auto) 0.2 % (0.0-3.0) 08/15/16 08:00 Gran # 2.80 (1.4-6.5) 08/15/16 08:00 Lymph # 0.9 (1.2-3.4) L 08/15/16 08:00 [place] # 0.5 (0.1-0.6) 08/15/16 08:00 Eos # 0.1 (0.0-0.7) 08/15/16 08:00 Baso # 0.01 K/mm3 (0.0-2.0) 08/15/16 08:00 Sodium 140 mmol/L (132-148) 08/15/16 08:00 Potassium 3.9 mmol/L (3.6-5.0) 08/15/16 08:00 Chloride 108 mmol/L (95-110) 08/15/16 08:00 Carbon Dioxide 25 mmol/L (21-33) 08/15/16 08:00 Anion Gap 11 (10-20) 08/15/16 08:00 BUN 3 mg/dL (7-21) L 08/15/16 08:00 Creatinine 0.6 mg/dL (0.5-1.4) 08/15/16 08:00 Est GFR ( Amer) > 60 08/15/16 08:00 Est GFR (Non-Af Amer) > 60 08/15/16 08:00 Random Glucose 101 mg/dL (70-110) 08/15/16 08:00 Lactic Acid 0.8 mmol/L (0.7-2.1) 08/13/16 00:54 Calcium 8.0 mg/dL (8.4-10.5) L 08/15/16 08:00 Total Bilirubin 0.4 mg/dL (0.2-1.3) 08/15/16 08:00 AST 15 U/L (15-39) 08/15/16 08:00 ALT 27 U/L (7-56) 08/15/16 08:00 Alkaline Phosphatase 68 U/L (38-133) 08/15/16 08:00 Total Protein 6.5 g/dL (5.8-8.3) 08/15/16 08:00 Albumin 3.0 g/dL (3.0-4.8) 08/15/16 08:00 Globulin 3.5 gm/dL 08/15/16 08:00 Albumin/Globulin Ratio 0.9 (1.1-1.8) L 08/15/16 08:00 Lipase 61 U/L (23-300) 08/12/16 21:50 Procalcitonin 0.77 NG/ML (0.19-0.49) H 08/13/16 07:30 Urine Color Yellow (YELLOW) 08/12/16 21:50 Urine Appearance Cloudy (CLEAR) 08/12/16 21:50 Urine pH 6.0 (4.7-8.0) 08/12/16 21:50 Ur Specific [place] 1.020 (1.005-1.035) 08/12/16 21:50 Urine Protein 100 mg/dL (<30 mg/dL) H 08/12/16 21:50 Urine Glucose (UA) Negative mg/dL (NEGATIVE) 08/12/16 21:50 Urine Ketones Negative mg/dL (NEGATIVE) 08/12/16 21:50 Urine Blood Large (NEGATIVE) H 08/12/16 21:50 Urine Nitrate Positive (NEGATIVE) H 08/12/16 21:50 Urine Bilirubin Negative (NEGATIVE) 08/12/16 21:50 Urine Urobilinogen 0.2 E.U./dL (<1 E.U./dL) 08/12/16 21:50 Ur Leukocyte Esterase Moderate [place]/uL (NEGATIVE) H 08/12/16 21:50 Urine RBC 5 - 10 /hpf (0-2) 08/12/16 21:50 Urine WBC Tntc /hpf (0-6) 08/12/16 21:50 Ur Epithelial Cells 0 - 2 /hpf (0-5) 08/12/16 21:50 Urine Bacteria Many (NEG) 08/12/16 21:50 Urine HCG, Qual Negative (NEGATIVE) 08/12/16 21:50 Influenza Typ A,B (EIA) Negative for flu a/b (NEGATIVE) 08/14/16 10:00 - Hospital Course Hospital Course: 41 F w no sig PMH came with L flank pain and fever. CT scan showed hydroureteronephrosis L. Pt was started on IV Cefepime and Tylenol for fever. Pain improved and fever subsided. Urine and blood cx grew E-coli sensitive to Cipro. ID was onboard and cleared to DC her home with PO Cipro for 12 days. Urologist is also on board. Recommended ABX for 10-14 days. Pt was instructed to f/u with Urologist in 2 weeks and take Cipro for 12 days twice a day. Pt agreed and understood. Discharge Exam - Head Exam Head Exam: NORMAL INSPECTION - Eye Exam Eye Exam: EOMI, Normal appearance, PERRL Pupil Exam: NORMAL ACCOMODATION, PERRL - Respiratory Exam Respiratory Exam: NORMAL BREATHING PATTERN, UNREMARKABLE - Cardiovascular Exam Cardiovascular Exam: REGULAR RHYTHM - GI/Abdominal Exam GI & Abdominal Exam: Normal Bowel Sounds, Unremarkable - Exam Exam: NORMAL INSPECTION - Extremities Exam Extremities exam: full ROM, normal inspection - Neurological Exam Neurological exam: Alert, CN II-XII Intact, Normal Gait, Oriented x3, Reflexes Normal - Psychiatric Exam Psychiatric exam: Normal Affect, Normal Mood - Skin Skin Exam: Dry, Intact, Normal Color, Warm Discharge Plan - Discharge Medications Prescriptions: Ciprofloxacin [Cipro] 500 mg PO BID 12 Days - Follow Up Plan Condition: GOOD Disposition: HOME/ ROUTINE Patient education suggested?: Yes Instructions: Pneumococcal Vaccine for Adults (DC), Urinary Tract Infection in Women (DC), Urinary Tract Infection in Men (DC), Acute Pyelonephritis (DC), Dysuria (GEN) Additional Instructions: Follow up with Dr. Chacon within 2 weeks. Follow up with primary care provider. Return to Local ER if symptoms worsen. Referrals: Toño Jacobo MD [Primary Care Provider] - Juancarlos Chacon MD [Staff Provider] - <Kane SORIA,[facility] - Last Filed: 08/15/16 15:17> Provider - Provider Date of Admission: 08/14/16 08:57 Attending physician: Baylee Danielle MD Primary care physician: Toño Jacobo MD Hospital Course - Lab Results Lab Results: Micro Results 08/14/16 09:10 Blood-Venous Blood Culture - Preliminary NO GROWTH AFTER 24 HOURS 08/14/16 09:00 Blood-Venous Blood Culture - Preliminary NO GROWTH AFTER 24 HOURS Most Recent Lab Values WBC 4.3 10^3/ul (4.5-11.0) L D 08/15/16 08:00 RBC 2.88 10^6/uL (3.5-6.1) L 08/15/16 08:00 Hgb 8.6 gm/dL (12.0-16.0) L 08/15/16 08:00 Hct 24.6 % (36.0-48.0) L 08/15/16 08:00 MCV 85.4 fL (80.0-105.0) 08/15/16 08:00 MCH 29.9 pg (25.0-35.0) 08/15/16 08:00 MCHC 35.0 g/dl (31.0-37.0) 08/15/16 08:00 RDW 12.1 % (11.5-14.5) 08/15/16 08:00 Plt Count 179 10^3/uL (120.0-450.0) 08/15/16 08:00 MPV 10.4 fl (7.0-11.0) 08/15/16 08:00 Gran % 64.8 % (50.0-68.0) 08/15/16 08:00 Lymph % (Auto) 21.3 % (22.0-35.0) L 08/15/16 08:00 [place] % (Auto) 11.8 % (1.0-6.0) H 08/15/16 08:00 Eos % (Auto) 1.9 % (1.5-5.0) 08/15/16 08:00 Baso % (Auto) 0.2 % (0.0-3.0) 08/15/16 08:00 Gran # 2.80 (1.4-6.5) 08/15/16 08:00 Lymph # 0.9 (1.2-3.4) L 08/15/16 08:00 [place] # 0.5 (0.1-0.6) 08/15/16 08:00 Eos # 0.1 (0.0-0.7) 08/15/16 08:00 Baso # 0.01 K/mm3 (0.0-2.0) 08/15/16 08:00 Sodium 140 mmol/L (132-148) 08/15/16 08:00 Potassium 3.9 mmol/L (3.6-5.0) 08/15/16 08:00 Chloride 108 mmol/L (95-110) 08/15/16 08:00 Carbon Dioxide 25 mmol/L (21-33) 08/15/16 08:00 Anion Gap 11 (10-20) 08/15/16 08:00 BUN 3 mg/dL (7-21) L 08/15/16 08:00 Creatinine 0.6 mg/dL (0.5-1.4) 08/15/16 08:00 Est GFR ( Amer) > 60 08/15/16 08:00 Est GFR (Non-Af Amer) > 60 08/15/16 08:00 Random Glucose 101 mg/dL (70-110) 08/15/16 08:00 Lactic Acid 0.8 mmol/L (0.7-2.1) 08/13/16 00:54 Calcium 8.0 mg/dL (8.4-10.5) L 08/15/16 08:00 Total Bilirubin 0.4 mg/dL (0.2-1.3) 08/15/16 08:00 AST 15 U/L (15-39) 08/15/16 08:00 ALT 27 U/L (7-56) 08/15/16 08:00 Alkaline Phosphatase 68 U/L (38-133) 08/15/16 08:00 Total Protein 6.5 g/dL (5.8-8.3) 08/15/16 08:00 Albumin 3.0 g/dL (3.0-4.8) 08/15/16 08:00 Globulin 3.5 gm/dL 08/15/16 08:00 Albumin/Globulin Ratio 0.9 (1.1-1.8) L 08/15/16 08:00 Lipase 61 U/L (23-300) 08/12/16 21:50 Procalcitonin 0.77 NG/ML (0.19-0.49) H 08/13/16 07:30 Urine Color Yellow (YELLOW) 08/12/16 21:50 Urine Appearance Cloudy (CLEAR) 08/12/16 21:50 Urine pH 6.0 (4.7-8.0) 08/12/16 21:50 Ur Specific [place] 1.020 (1.005-1.035) 08/12/16 21:50 Urine Protein 100 mg/dL (<30 mg/dL) H 08/12/16 21:50 Urine Glucose (UA) Negative mg/dL (NEGATIVE) 08/12/16 21:50 Urine Ketones Negative mg/dL (NEGATIVE) 08/12/16 21:50 Urine Blood Large (NEGATIVE) H 08/12/16 21:50 Urine Nitrate Positive (NEGATIVE) H 08/12/16 21:50 Urine Bilirubin Negative (NEGATIVE) 08/12/16 21:50 Urine Urobilinogen 0.2 E.U./dL (<1 E.U./dL) 08/12/16 21:50 Ur Leukocyte Esterase Moderate [place]/uL (NEGATIVE) H 08/12/16 21:50 Urine RBC 5 - 10 /hpf (0-2) 08/12/16 21:50 Urine WBC Tntc /hpf (0-6) 08/12/16 21:50 Ur Epithelial Cells 0 - 2 /hpf (0-5) 08/12/16 21:50 Urine Bacteria Many (NEG) 08/12/16 21:50 Urine HCG, Qual Negative (NEGATIVE) 08/12/16 21:50 Influenza Typ A,B (EIA) Negative for flu a/b (NEGATIVE) 08/14/16 10:00 Attending/Attestation - Attestation I have personally seen and examined this patient.: Yes I have fully participated in the care of the patient.: Yes I have reviewed all pertinent clinical information, including history, physical exam and plan: Yes Notes (Text): Patient was seen and examined with medical leader .Agreed with resident assessment and plan. 41 yrs old female was admitted with sepsis due E coli bacteremia due to UTI, also has left sided hydronephrosis, renal functions are normal.Patient is feeling better.She is afebrile, repeat blood cultures are negative.Patient will be discharged home on 2 weeks of oral ciprofloxacin 500 mg PO BID.She will follow up with PCP and Urology as out patient. Management plan was discussed in detail with patient Education was provided.
--- NOTE | 2016-08-15 16:59 | CP.PCM.PN ---
Subjective - Date & Time of Evaluation Date of Evaluation: 08/15/16 Time of Evaluation: 10:35 - Subjective Subjective: Comfortable in bed, not in distress, no fevers overnight, no nausea. Objective - Vital Signs/Intake and Output Vital Signs (last 24 hours): Temp Pulse Resp BP Pulse Ox 98 F 98 H 20 110/73 96 08/15/16 07:59 08/15/16 07:59 08/15/16 07:59 08/15/16 07:59 08/15/16 07:59 Intake and Output: 08/15/16 08/15/16 06:59 18:59 Intake Total 780 Balance 780 - Labs Labs: 08/15/16 08:00 08/15/16 08:00 - Constitutional Appears: Non-toxic, No Acute Distress - Head Exam Head Exam: NORMAL INSPECTION - Respiratory Exam Respiratory Exam: Decreased Breath Sounds. absent: Rales - Cardiovascular Exam Cardiovascular Exam: +S1, +S2 - GI/Abdominal Exam GI & Abdominal Exam: Soft. absent: Tenderness Assessment and Plan - Assessment and Plan (Free Text) Plan: Assessment Sepsis secondary to E. coli probably secondary to left sided pyelopnephritis with associated hydroureteronephrosis, clinically improving Plan switch from Cefepime to Ciprofloxacin (day 2) to complete the 14 day course; discussed with Dr. Middleton
== END 2016-08-15 15:17 | disposition home or self-care (01) | DRG 901 ==
LOC: ED 21:16 → ERH 23:53 → 5RNO 08-13 01:06 → OBSVTOIN 08-14 08:57
PROVIDERS: ADMIT Hospitalist; ATTEND Hospitalist
DX: A41.51 Sepsis due to Escherichia coli [E. coli] (principal); N13.30 Unspecified hydronephrosis; N10 Acute pyelonephritis; J98.11 Atelectasis; K44.9 Diaphragmatic hernia without obstruction or gangrene; R40.2412 Glasgow coma scale score 13-15, at arrival to emergency department; Z87.442 Personal history of urinary calculi

== ENCOUNTER 2017-02-01 19:36 | Emergency (ER) | payer MEDICAID, OTHER ==
[2017-02-01 19:40] VITALS: BMI 24.2
[2017-02-01 19:44] VITALS: BP 110/74; PULSE 77; RESP 18; TEMP 98.6; O2SAT 99
[2017-02-01 20:23] LABS: URINE BILIRUBIN NEGATIVE (NEGATIVE); URINE BLOOD TRACE-LYSED (NEGATIVE); URINE GLUCOSE (UA) NEGATIVE (NEGATIVE); URINE KETONE NEGATIVE (NEGATIVE); URINE LEUKOCYTE ESTERASE MODERATE Leu/uL (NEGATIVE); URINE PROTEIN NEGATIVE mg/dL (<30 mg/dL); URINE UROBILINOGEN 0.2 E.U./dL (<1 E.U./dL)
[2017-02-01 20:25] LABS: URINE APPEARANCE CLEAR (CLEAR); URINE COLOR YELLOW (YELLOW)
[2017-02-01 20:43] LABS: URINE WBC 25 - 30 /hpf (0-6)
[2017-02-01 20:44] LABS: URINE BACTERIA RARE (NEG)
[2017-02-01] MEDS ORDERED: cefTRIAXone (Rocephin) 1 gm Inj IM STA (20:57)
--- NOTE | 2017-02-01 21:06 | ED PDOC ---
Arrival/HPI - General Chief Complaint: Back Pain Time Seen by Provider: 02/01/17 20:08 Historian: Patient - History of Present Illness Narrative History of Present Illness (Text): 02/01/17 21:13 A 41 year old female presents to the emergency department with left/mid back pain for the past several days. She states that the pain is intermittent and feels similar to the kidney infection she was diagnosed with, however, the pain is not as severe. She denies fevers, chills, headache, dizziness, chest pain, shortness of breath, dyspnea on exertion, cough, abdominal pain, nausea, vomiting, diarrhea, back pain, neck pain, urinary/bowel changes, no trauma/ injury, or any other complaint. PMD [place] Time/Duration: Other (Few Days) Symptom Onset: Sudden Symptom Course: Unchanged Activities at Onset: Rest, Light Context: Home Past Medical History - Provider Review Nursing Documentation Reviewed: Yes - Infectious Disease Hx of Infectious Diseases: None - Musculoskeletal/Rheumatological Hx Falls: No - Psychiatric Hx Psychophysiologic Disorder: No Hx Anxiety: No Hx Bipolar Disorder: No Hx Depression: No Hx Emotional Abuse: No Hx Hallucinations: No Hx Panic Disorder: No Hx Post Traumatic Stress Disorder: No Hx Psychosis: No Hx Physical Abuse: No Hx Schizophrenia: No Hx Sexual Abuse: No Hx Substance Use: No - Surgical History Hx Section: Yes (x1) - Anesthesia Hx Anesthesia: No Hx Anesthesia Reactions: No Hx Malignant Hyperthermia: No - Suicidal Assessment Feels Threatened In Home Enviroment: No Family/Social History - Physician Review Nursing Documentation Reviewed: Yes Family/Social History: No Known Family HX Smoking Status: Never Smoked Hx Alcohol Use: No Hx Substance Use: No Allergies/Home Meds Allergies/Adverse Reactions: Allergies No Known Allergies Allergy (Verified 12/23/14 14:37) Review of Systems - Physician Review All systems were reviewed & negative as marked: Yes - Review of Systems Constitutional: absent: Fevers, Night Sweats Respiratory: absent: SOB, Cough Cardiovascular: absent: Chest Pain Gastrointestinal: absent: Abdominal Pain, Diarrhea, Nausea, Vomiting Genitourinary Female: absent: Frequency, Hematuria, Urine Output Changes Musculoskeletal: Back Pain (left lower/mid back pain). absent: Neck Pain Neurological: absent: Headache, Dizziness Physical Exam Vital Signs Reviewed: Yes Vital Signs Temp Pulse Resp BP Pulse Ox 02/01/17 19:44 98.6 F 77 18 110/74 99 Temperature: Afebrile Blood Pressure: Normal Pulse: Regular Respiratory Rate: Normal Appearance: Positive for: Well-Appearing, Non-Toxic, Comfortable Pain Distress: None Mental Status: Positive for: Alert and Oriented X 3 - Systems Exam Head: Present: Atraumatic, Normocephalic Pupils: Present: PERRL Extroacular Muscles: Present: EOMI Conjunctiva: Present: Normal Mouth: Present: Moist Mucous Membranes Neck: Present: Normal Range of Motion Respiratory/Chest: Present: Clear to Auscultation, Good Air Exchange. No: Respiratory Distress, Accessory Muscle Use Cardiovascular: Present: Regular Rate and Rhythm, Normal S1, S2. No: Murmurs Abdomen: Present: Normal Bowel Sounds. No: Tenderness, Distention, Peritoneal Signs Back: Present: Normal Inspection Upper Extremity: Present: Normal Inspection. No: Cyanosis, Edema Lower Extremity: Present: Normal Inspection. No: Edema Neurological: Present: GCS=15, CN II-XII Intact, Speech Normal Skin: Present: Warm, Dry, Normal Color. No: Rashes Psychiatric: Present: Alert, Oriented x 3, Normal Insight, Normal Concentration Medical Decision Making ED Course and Treatment: 02/01/17 21:17 Impression: A 41 year old female presents with intermittent lower left-mid back pain. DDx : UTI, muscle strain / spasm Plan: -- Urinalysis -- Urine Culture -- Rocephin -- Reassess and disposition Progress Notes: Urinalysis shows +UTI, urine cx pending. Rocephin 1 g IM ordered. Patient notified of dx of UTI. Advised to follow up with primary care physician in 1-2 days without fail. Advised to take medication as prescribed. Return to the emergency room at any time for any new or worsening symptoms. Patient states she fully agrees with and understands discharge instructions. States that she agrees with the plan and disposition. Verbalized and repeated discharge instructions and plan. I have given the patient opportunity to ask any additional questions. - Lab Interpretations Lab Results: Lab Results 02/01/17 20:13: Urine Color Yellow, Urine Appearance Clear, Urine pH 7.0, Ur Specific [place] 1.010, Urine Protein Negative, Urine Glucose (UA) Negative, Urine Ketones Negative, Urine Blood Trace-lysed H, Urine Nitrate Negative, Urine Bilirubin Negative, Urine Urobilinogen 0.2, Ur Leukocyte Esterase Moderate H, Urine RBC 2 - 5, Urine WBC 25 - 30, Ur Epithelial Cells 4 - 5, Urine Bacteria Rare - Medication Orders Current Medication Orders: Discontinued Medications Ceftriaxone Sodium (Rocephin) 1 gm IM STAT STA PRN Reason: Protocol Stop: 02/01/17 20:58 - PA / MEDICAL GENETICIST / Resident Statement MD/DO has reviewed & agrees with the documentation as recorded. - Scribe Statement The provider has reviewed the documentation as recorded by the Scribe Guerda Heaton Provider Scribe Attestation: All medical record entries made by the Scribe were at my direction and personally dictated by me. I have reviewed the chart and agree that the record accurately reflects my personal performance of the history, physical exam, medical decision making, and the department course for this patient. I have also personally directed, reviewed, and agree with the discharge instructions and disposition. Disposition/Present on Arrival - Present on Arrival Any Indicators Present on Arrival: No History of DVT/PE: No History of Uncontrolled Diabetes: No Urinary Catheter: No History of Decub. Ulcer: No History Surgical Site Infection Following: None - Disposition Have Diagnosis and Disposition been Completed?: Yes Diagnosis: UTI (urinary tract infection) Disposition: HOME/ ROUTINE Disposition Time: 21:00 Patient Plan: Discharge Patient Problems: Current Active Problems Problem Status Onset UTI (urinary tract infection) Acute Condition: STABLE Discharge Instructions (ExitCare): Urinary Tract Infection in Women (ED) Print Language: TURKISH Additional Instructions: Thank you for letting us take care of you today. You were treated for UTI. The emergency medical care you received today was directed at your acute symptoms. If you were prescribed any medication, please fill it and take as directed. It may take several days for your symptoms to resolve. Return to the Emergency Department if your symptoms worsen, do not improve, or if you have any other problems. Please contact your doctor in 2 days for re-evaluation and follow up. Bring any paperwork you were given at discharge with you along with any medications you are taking to your follow up visit. Our treatment cannot replace ongoing medical care by a primary care provider (PCP) outside of the emergency department. Thank you for allowing the [facility] team to be part of your care today. If you had a urine culture: It will take several days for the results, if any change in treatment is needed we will contact you. Prescriptions: Cefpodoxime [Vantin] 200 mg PO BID #20 tab Referrals: Toño Jacobo MD [Primary Care Provider] - Follow up with primary Forms: [employer] (Yi)
== END 2017-02-01 22:15 | disposition home or self-care (01) ==
LOC: ED 19:36
DX: N39.0 Urinary tract infection, site not specified (principal)
CPT/HCPCS: 81001; 87086; 96372; 99282; J0696